=== PATIENT | female | born 1940 | race Caucasian/White ===

== ENCOUNTER → 2022-03-07 | Day surgery (SDC) | payer MEDICARE ==
[2022-03-06 10:55] VITALS: BMI 24.3
[~2022-03-07] MED LIST: IOPAMIDOL-370 50ML BTL MISCELLANE ONE
[2022-03-07 10:35] VITALS: BP 156/68; PULSE 66; RESP 16; TEMP 98.4
--- NOTE | 2022-03-07 13:20 | IR ---
Port-A-Cath check HISTORY: Port malfunction 2.8 minutes fluoroscopy time supplied, 1104 intraoperative images document the procedure Real-time fluoroscopy shows the port to be intact. Following sterile prep the patient's port was cannulated by the undersigned with a Robles needle under real-time fluoroscopy. All elements of maximal barrier technique were utilized. Under real-time fluoroscopy gentle hand-injection of contrast material was performed. Images obtained . Following the procedure catheter was flushed with heparinized flush. Patient remained in stable con dition. No immediate, location. The port is intact. The port and catheter still, there is no evident fracture of the catheter. At the distal tip the catheter there is fibrin sheath, contrast courses retrograde from the tip of the cath eter along the distal aspect of the catheter. Contrast courses into the superior vena cava. IMPRESSION: There is intraluminal tip placement of the distal aspect of the catheter. Fibrin sheath i s present. Fibrin sheath stripping could be performed attempted via femoral approach if requested.
== END ==
LOC: CATHCVL 09:53
PROVIDERS: ATTEND Radiology Diagnostic Radiology
DX: T82.514A Breakdown (mechanical) of infusion catheter, initial encounter (principal); Y83.8 Other surgical procedures as the cause of abnormal reaction of the patient, or of later complication, without mention of misadventure at the time of the procedure; Z88.0 Allergy status to penicillin; Z88.8 Allergy status to other drugs, medicaments and biological substances; Z88.5 Allergy status to narcotic agent
CPT/HCPCS: 36598; J1642; Q9967

== ENCOUNTER 2022-03-31 09:27 | Day surgery (SDC) | payer MEDICARE ==
[2022-03-27 10:09] VITALS: BMI 23.6
[~2022-03-31 09:27] MED LIST changes: +ACETAMINOPHEN TAB 500 MG TAB PO PRN; +DEXAMETHASONE SOD PHOSPHATE 4 MG/ML 1 ML VIAL IV ONE; +HEPARIN SODIUM,PORCINE/PF 5,000 UNIT/0.5 ML SYRINGE SQ PRN; -IOPAMIDOL-370 50ML BTL MISCELLANE ONE; +LACTATED RINGERS 1,000 ML IV SCH; +LIDOCAINE 1% (10MG/ML) FOR IV START INTRADERMA PRN; +ONDANSETRON 4 MG/2 ML VIAL IVP ONE; +ONDANSETRON 4 MG/2 ML VIAL IVP PRN; +Pre Op ABX Message 1 EACH MISC MISCELLANE ONE; +fentaNYL (PF) 50 MCG/ML 2 ML AMP IV PRN
--- NOTE | 2022-03-31 11:51 | P.GSHP ---
History of Present Illness H&P Date: 03/31/22 Chief Complaint: Common variable immunodeficiency Patient here today for Port-A-Cath replacement. Patient has had a total of 4 ports before. It sounds like all 4 of them have been in the left chest region. The current port is 4 years old. It has been clogged up. It requires replacement. Patient has monthly infusions for her immunodeficiency syndrome. She does not believe she is ever had a port or access on the right. 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 Hx left breast cancer with left mastectomy in 2006, hx Rheumatic Fever X2. History of Any Multi-Drug Resistant Organisms: None Reported Past Surgical History: Adenoidectomy, Appendectomy, Breast Surgery, Hysterectomy , Orthopedic Surgery, Tonsillectomy Additional Past Surgical History / Comment(s): Left sinus surgery, bilateral meniscus repair, cataract surgery - implants, left mastectomy, port placement left side, vaginal surgery. Past Anesthesia/Blood Transfusion Reactions: No Reported Reaction Additional Past Anesthesia/Blood Transfusion Reaction / Comment(s): "Sensitive to Anesthesia, don't need much." Smoking Status: Never smoker - Past Family History Father Family Medical History: Diabetes Mellitus Mother Family Medical History: Diabetes Mellitus Daughter(s) Family Medical History: Cancer Additional Family Medical History / Comment(s): Ductocarcinoma. Medications and Allergies Home Medications Medication Instructions Recorded Confirmed Type Non Formulary Drug 1 each IV QMONTH 04/13/15 03/31/22 History Acetaminophen [Tylenol] 325 - 500 mg PO Q6H PRN 03/27/22 03/31/22 History Allergies Allergy/AdvReac Type Severity Reaction Status Date / Time adhesive tape Allergy RED Verified 03/31/22 09:54 SKIN,RASH erythromycin base Allergy Anaphylaxis Verified 03/31/22 09:54 meperidine HCl [From Demerol] Allergy Rash/Hives Verified 03/31/22 09:54 vancomycin Allergy Rash/Hives, Verified 03/31/22 09:54 DIZZINESS Surgical - Exam Vital Signs Temp Pulse Resp BP Pulse Ox 96.9 F L 67 18 162/59 99 03/31/22 09:54 03/31/22 09:54 03/31/22 09:54 03/31/22 09:54 03/31/22 09:54 Physical exam: General: Well-developed, well-nourished HEENT: Normocephalic, sclerae nonicteric Abdomen: Nontender, nondistended Extremities: No edema Neuro: Alert and oriented Chest: Left-sided Port-A-Cath in place Assessment and Plan (1) Common variable immunodeficiency Narrative/Plan: 81-year-old female with malfunctioning Port-A-Cath. We'll remove the patient's left-sided Port-A-Cath and replaced with an 8-Wolof right-sided IJ Port-A-Cath. Risks of bleeding, infection, DVT, pneumothorax, catheter malfunction, anesthesia related complications were discussed. The patient understands and wishes to proceed. Current Visit: Yes Status: Acute Code(s): D83.9 - COMMON VARIABLE IMMUNODEFICIENCY, UNSPECIFIED SNOMED Code(s): 01138481
[2022-03-31] MEDS ORDERED: LIDOCAINE 2% INJ 20 MG/ML (2 ML VIAL) ONE (12:04)
[2022-03-31] MEDS ORDERED: PROPOFOL 10 MG/ML 20 ML VIAL IV ONE (12:04)
[2022-03-31] MEDS ORDERED: fentaNYL (PF) 50 MCG/ML 2 ML AMP ONE (12:04)
[2022-03-31] MEDS ORDERED: SODIUM CHLORIDE 0.9% 50 ML with ceFAZolin 2,000 MG IV ONE ×2 (12:34)
[2022-03-31] MEDS ORDERED: HEPARIN SODIUM,PORCINE 100 UNIT/ML 5 ML VIAL IV ONE (12:39)
[2022-03-31] MEDS ORDERED: LIDOCAINE (PF) 10 MG/ML 2 ML VIAL SQ ONE (12:40)
--- NOTE | 2022-03-31 13:17 | FL ---
EXAMINATION TYPE: FL guided central line placemt HISTORY: Fluoroscopy time Impression: 1. Fluoroscopy support provided to the referring physician. 18 seconds provided.
[2022-03-31] MEDS ORDERED: HYDROcodone/APAP 5-325MG 1 EACH TAB PO PRN (13:25)
[2022-03-31] MEDS ORDERED: NALOXONE 0.4 MG/ML 1 ML VIAL IV PRN (13:25)
[2022-03-31 13:26] VITALS: RESP 16; TEMP 96.8
--- NOTE | 2022-03-31 13:29 | P.OP ---
Date of Procedure: 03/31/22 Procedure(s) Performed: PREOPERATIVE DIAGNOSIS: Common variable immunodeficiency syndrome POSTOPERATIVE DIAGNOSIS: Same PROCEDURE: Port-A-Cath placement with fluoroscopic and ultrasound guidance, Port-A-Cath removal SURGEON: Clau EBL: Minimal ANESTHESIA: Gen. COMPLICATIONS: None OPERATIVE PROCEDURE: Patient was brought and placed on the operative table in the supine position. The patient was sedated per anesthesia that time. The chest and neck were prepped and draped in usual sterile fashion. First we approached the left sided Port-A-Cath. The previous incision site was re- incised. The port was easily removed. No bleeding was seen. The subcutaneous tissues were closed using 3-0 Vicryl sutures. The skin was closed using a running 4-0 Monocryl stitch. Skin glue was later applied. The right side was then addressed. The ultrasound probe was used to identify the location of the right internal jugular vein. The skin was localized with lidocaine. The Seldinger needle was advanced into the IJ under ultrasound guidance. The wire was advanced through the needle under fluoroscopic guidance into the superior vena cava. A port pocket was created in the right infraclavicular location. The 8-[place] catheter was tunneled from the wire entrance site to the port pocket. The port was then connected to the catheter. The dilator introducer was threaded over the guidewire. The guidewire and dilator were then removed. The catheter was advanced through the introducer and introducer was then removed. The tip was seen to be in the right atrial junction via fluoroscopy. A picture of the radiograph showing the tip at the radial digital junction was taken. Port was flushed with both saline and a Hep-Lock solution. There was good flow both in and out of the port. The port was sutured in underlying tissues using 3-0 silk sutures. The subcutaneous tissues were reapproximated using 3-0 Vicryl sutures and the skin at both locations using 4-0 Monocryl sutures. Skin glue and sterile dressings then applied. DISPOSITION: Stable to recovery room
--- NOTE | 2022-03-31 14:03 | XR ---
EXAMINATION TYPE: XR chest 1V confirm line plcut DATE OF EXAM: 03/31/2022 COMPARISON: 07/11/2011 HISTORY: Line placement TECHNIQUE: Single frontal view of the chest is obtained. FINDINGS: Right-sided Mediport catheter seen with tip overlying the SVC and no sizable pneumothorax. There are large right paratracheal soft tissue mass. Size normal. No overt failure. Subsegmental les nges left lung base most probably atelectasis or scarring. Hypertrophic and degenerative changes in t he spine. IMPRESSION: 1. Tip of the catheter overlies the SVC with no sizable pneumothorax. 2 large right paratracheal soft tissue mass
[2022-03-31 14:36] VITALS: BP 118/61; PULSE 63
== END 2022-03-31 15:01 | disposition home or self-care (01) ==
LOC: OR 09:27
PROVIDERS: ATTEND Surgery
DX: D83.9 Common variable immunodeficiency, unspecified (principal); Z45.2 Encounter for adjustment and management of vascular access device; E78.5 Hyperlipidemia, unspecified; M19.90 Unspecified osteoarthritis, unspecified site; Z85.3 Personal history of malignant neoplasm of breast; Z90.12 Acquired absence of left breast and nipple; Z90.89 Acquired absence of other organs; Z90.49 Acquired absence of other specified parts of digestive tract; Z90.710 Acquired absence of both cervix and uterus; Z98.890 Other specified postprocedural states; Z98.49 Cataract extraction status, unspecified eye; Z96.1 Presence of intraocular lens; Z83.3 Family history of diabetes mellitus; Z88.1 Allergy status to other antibiotic agents; Z88.5 Allergy status to narcotic agent; Z91.09 Other allergy status, other than to drugs and biological substances; Z88.8 Allergy status to other drugs, medicaments and biological substances
CPT/HCPCS: 36561; 36590; 77001; C1788; J2001 ×2; J1642; J1100; J2405; J0690; J3010; J2704; J1644

== ENCOUNTER → 2024-08-02 | Outpatient (CLI) | payer MEDICARE ==
--- NOTE | 2024-08-02 15:41 | US ---
EXAMINATION TYPE: US axilla LT DATE OF EXAM: 08/02/2024 COMPARISON: US CLINICAL INDICATION: Female, 83 years old with history of C50.919 BREAST CX; Pt states felt palpab le lump left axilla on examination today- pt states h/o left mastectomy TECHNIQUE: Left Axilla with grayscale and color Doppler imaging. FINDINGS: Multiple (up to 4)- lymph nodes visualized within left axilla 1)- 1.3 x 1.3 x 1.2 cm with a 1mm cortical thickness 2)- 0.9 x 1.1 x 0.9 cm with a 1mm cortical thickness 3)- 1.0 x 0.8 x 0.8 cm with a 1mm cortical thickness 4)- 2.1 x 0.9 x 0.7 cm with a 1mm cortical thickness IMPRESSION: Multiple lesions within the left axilla compatible with fatty hilum lymph nodes. No suspi cious lymph nodes identified. [facility], , 08/02/2024 3:39 PM
== END | disposition home or self-care (01) ==
LOC: RADUSWWP 12:35
PROVIDERS: ATTEND Internal Medicine Hematology & Oncology
DX: C50.919 Malignant neoplasm of unspecified site of unspecified female breast (principal); Z03.89 Encounter for observation for other suspected diseases and conditions ruled out; Z90.12 Acquired absence of left breast and nipple